=== PATIENT | male | born 1985 | race Caucasian/White ===

== ENCOUNTER 2018-10-18 18:13 | Emergency (ER) | payer SELFPAY ==
[~2018-10-18] VITALS: Ht 182.9 cm; Wt 100.7 kg
[2018-10-18 18:15] VITALS: Ht 182.9 cm; Wt 100.7 kg
[2018-10-18 19:31] VITALS: BP 115/71
== END 2018-10-18 19:42 | disposition home or self-care (01) ==
LOC: ED 18:13
DX: K52.9 Noninfective gastroenteritis and colitis, unspecified (principal); F17.210 Nicotine dependence, cigarettes, uncomplicated
CPT/HCPCS: J1885; Q0162